=== PATIENT | male | born 1985 | race American Indian/Alaskan Native ===

== ENCOUNTER 2017-07-02 14:45 | Emergency (ER) | payer OTHER ==
[2017-07-02 15:07] VITALS: BP 136/90
[2017-07-02] MEDS ORDERED: ZOFRAN IM ONE (16:59)
[2017-07-02] MEDS ORDERED: ZOFRAN ODT ONE (16:59)
[2017-07-02] MEDS ORDERED: TORADOL IM ONE (16:59)
[2017-07-02] MEDS ORDERED: TORADOL ONE (16:59)
--- NOTE | 2017-07-02 17:19 | Emergency Department Report ---
ED Headache HPI - General Chief Complaint: Headache Stated Complaint: HEADACHE Time Seen by Provider: 07/02/17 16:52 - History of Present Illness Initial Comments: Patient is a 31-year-old male past history of migraines who reports on Imitrex in the past who states that for the last 3 days and a headache. Patient was taken 3 Percocet tens that he bought off the street for pain which did relieve the pain briefly but has come back. Patient states she is nauseous the headache is radiating from the posterior neck upper into the back of the head. Patient states that it is been no photophobia. Patient also states that he has a history of C1 disc herniation this may be the cause of his discomfort. Patient denies any fevers vomiting chest pain cough at this time. Allergies/Adverse Reactions: Allergies erythromycin base Allergy (Verified 07/02/17 15:02) Anaphylaxis Home Medications: Ambulatory Orders Butalb/Acetamin/Caff 50-325-40 [Fioricet] 1 tab PO Q6HR PRN #15 tab 07/02/17 Ibuprofen [Motrin] 600 mg PO Q8H PRN #20 tablet 07/02/17 Ondansetron [Zofran Odt] 4 mg PO Q8HR PRN #10 tab.rapdis 07/02/17 methOCARBAMOL [Robaxin TAB] 500 mg PO Q6H PRN #15 tablet 07/02/17 predniSONE [Deltasone] 10 mg PO QDAY #5 tab 07/02/17 ED Review of Systems ROS: Stated complaint: HEADACHE Other details as noted in HPI Comment: All other systems reviewed and negative ED Past Medical Hx - Past Medical History Previous Medical History?: Yes Hx Headaches / Migraines: Yes Additional medical history: L5-S1 herniated disc, Bulging disc in C-1 - Surgical History Past Surgical History?: No - Social History Smoking Status: Current Every Day Smoker Substance Use Type: Marijuana - Medications Home Medications: Home Medications Medication Instructions Recorded Confirmed Last Taken Type Butalb/Acetamin/Caff 50-325-40 1 tab PO Q6HR PRN #15 tab 07/02/17 Unknown Rx [Fioricet] Ibuprofen [Motrin] 600 mg PO Q8H PRN #20 tablet 07/02/17 Unknown Rx Ondansetron [Zofran Odt] 4 mg PO Q8HR PRN #10 tab.rapdis 05/07/18 Unknown Rx methOCARBAMOL [Robaxin TAB] 500 mg PO Q6H PRN #15 tablet 07/02/17 Unknown Rx predniSONE [Deltasone] 10 mg PO QDAY #5 tab 07/02/17 Unknown Rx ED Physical Exam - General Limitations: No Limitations General appearance: alert, in no apparent distress - Head Head exam: Present: atraumatic, normocephalic - Eye Eye exam: Present: normal appearance - ENT ENT exam: Present: mucous membranes moist - Neck Neck exam: Present: normal inspection, tenderness, full ROM. Absent: meningismus, lymphadenopathy, thyromegaly - Respiratory Respiratory exam: Present: normal lung sounds bilaterally. Absent: respiratory distress, wheezes, rales, rhonchi - Cardiovascular Cardiovascular Exam: Present: regular rate, normal rhythm. Absent: systolic murmur, diastolic murmur, rubs, gallop - GI/Abdominal GI/Abdominal exam: Present: soft, normal bowel sounds. Absent: distended, tenderness, guarding, rebound - Rectal Rectal exam: Present: deferred - Extremities Exam Extremities exam: Present: normal inspection - Back Exam Back exam: Present: normal inspection - Neurological Exam Neurological exam: Present: alert, oriented X3 - Psychiatric Psychiatric exam: Present: normal affect, normal mood - Skin Skin exam: Present: warm, dry, intact, normal color. Absent: rash ED Course Vital Signs 07/02/17 15:03 Temperature 97.8 F Pulse Rate 64 Respiratory 20 Rate Blood Pressure 136/90 O2 Sat by Pulse 100 Oximetry ED Medical Decision Making - Medical Decision Making She was given a shot of Toradol be discharged home with maverick and Barb with follow-up with neurology Critical care attestation.: If time is entered above; I have spent that time in minutes in the direct care of this critically ill patient, excluding procedure time. ED Disposition Clinical Impression: Migraine Qualifiers: Migraine type: unspecified Status migrainosus presence: without status migrainosus Intractability: not intractable Qualified Code(s): G43.909 - Migraine, unspecified, not intractable, without status migrainosus Disposition: DC-01 TO HOME OR SELFCARE Is pt being admited?: No Does the pt Need Aspirin: No Condition: Stable Instructions: Migraine Headache (ED) Prescriptions: Butalb/Acetamin/Caff 50-325-40 [Fioricet] 1 tab PO Q6HR PRN #15 tab PRN Reason: Headache Referrals: CHRIS TATE MD [Staff Physician] - 3-5 Days
== END 2017-07-02 17:33 | disposition home or self-care (01) ==
LOC: EDBD → ED 14:45
DX: G43.909 Migraine, unspecified, not intractable, without status migrainosus (principal); F17.200 Nicotine dependence, unspecified, uncomplicated; F12.10 Cannabis abuse, uncomplicated; Z88.1 Allergy status to other antibiotic agents
CPT/HCPCS: 96372; 99282; J1885; Q0162